=== PATIENT | female | born 1995 | race Caucasian/White ===

== ENCOUNTER 2022-06-27 20:50 | Emergency (ER) | payer SELFPAY ==
[2022-06-27 21:17] VITALS: BP 168/95; PULSE 84; RESP 18; TEMP 98.8; BMI 26.6
[2022-06-27] MEDS ORDERED: ACETAMINOPHEN 325 MG TABLET (FP) PO ONE (21:33)
[2022-06-27] MEDS ORDERED: IBUPROFEN 600 MG TABLET (FP) PO ONE ×2 (21:37→22:02)
[2022-06-27] MEDS ORDERED: ACETAMINOPHEN 325 MG TABLET (FP) ONE (22:02)
== END 2022-06-27 22:20 | disposition home or self-care (01) ==
LOC: JER 20:50
DX: M25.572 Pain in left ankle and joints of left foot (principal); X50.0XXA Overexertion from strenuous movement or load, initial encounter
CPT/HCPCS: 73610-TC-LT-FY; 73630-TC-LT; 99283-25

== ENCOUNTER 2024-05-04 18:14 | Emergency (ER) | payer OTHER ==
[2024-05-04 18:23] VITALS: BP 132/94; PULSE 90; RESP 18; TEMP 97.4; BMI 26.5
== END 2024-05-04 19:16 | disposition home or self-care (01) ==
LOC: JER 18:14
DX: Z03.821 Encounter for observation for suspected ingested foreign body ruled out (principal)
CPT/HCPCS: 71046-TC-FY; 74019-TC-FY; 99283-25

== ENCOUNTER 2025-05-08 06:11 | Day surgery (SDC) | payer OTHER ==
[2025-05-08 08:06] VITALS: BMI 27.4
[2025-05-08] MEDS ORDERED: PROPOFOL 40 ML ONE (08:28)
[2025-05-08] MEDS ORDERED: LIDOCAINE HCL 2% 100 MG/5 ML DISP.SYRIN ONE (08:29)
[2025-05-08] MEDS ORDERED: ROCURONIUM BROMIDE 50 MG/5 ML SYRINGE ONE (08:29)
[2025-05-08] MEDS ORDERED: MIDAZOLAM HCL 2 MG/2 ML SINGLE DOSE VIAL ONE (08:29)
[2025-05-08] MEDS ORDERED: ONDANSETRON 4 MG/2 ML VIAL ONE (08:30)
[2025-05-08] MEDS ORDERED: DEXAMETHASONE SOD PHOSPHATE 4 MG/1 ML VIAL ONE (08:30)
[2025-05-08] MEDS ORDERED: SEVOFLURANE 250 ML BTL ONE (08:31)
[2025-05-08] MEDS ORDERED: LIDOCAINE 1%/EPI 1:100000 (20 ML MULTI DOSE VIAL) ONE (08:32)
[2025-05-08] MEDS ORDERED: PROMETHAZINE HCL 25 MG/1 ML VIAL IVPB PRN (08:37)
[2025-05-08] MEDS ORDERED: ONDANSETRON 4 MG/2 ML VIAL IVPUSH PRN (08:37)
[2025-05-08] MEDS ORDERED: NEOSTIGMINE METHYLSULFATE 0.5 MG/1 ML - 10 ML MDV ONE (10:39)
[2025-05-08] MEDS ORDERED: GLYCOPYRROLATE 0.2 MG/1 ML VIAL ONE (10:39)
[2025-05-08] MEDS ORDERED: ACETAMINOPHEN INJECTION 100 ML ONE (10:41)
[2025-05-08 14:37] VITALS: RESP 18
[2025-05-08] MEDS: IBUPROFEN 600 MG TABLET (FP) PO PRN (15:44)
[2025-05-08] MEDS: LACTATED RINGERS SOLUTION 1,000 ML IV SCH (15:46)
[2025-05-08] MEDS: ACETAMINOPHEN 325 MG TABLET (FP) PO PRN (22:19)
[2025-05-09 09:46] VITALS: BP 112/76; PULSE 73; TEMP 98.1
== END 2025-05-09 09:46 | disposition home or self-care (01) ==
LOC: JASUSAT 06:11 → JASU-SURG 06:11 → J7W 12:12 → JASUSAT 05-09 09:46
PROVIDERS: ATTEND Otolaryngology
PROC: 09BM8ZZ Excision of Nasal Septum, Via Natural or Artificial Opening Endoscopic (ICD-10-PCS; principal; 2025-05-08 10:00)
PROC: 09BL7ZZ Excision of Nasal Turbinate, Via Natural or Artificial Opening (ICD-10-PCS; 2025-05-08 10:00)
DX: J34.2 Deviated nasal septum (principal); J34.3 Hypertrophy of nasal turbinates
CPT/HCPCS: 88304-TC; 94760